=== PATIENT | male | born 1940 | race African-American/Black ===

== ENCOUNTER 2023-06-12 11:11 | Inpatient (IN) | payer OTHER, MEDICARE ==
[~2023-06-12] VITALS: Ht 304.8 cm; Wt 61.7 kg
[2023-06-12] MEDS: SODIUM CHLORIDE 0.9% 1,000 ML IV ONE (11:44)
[2023-06-12] MEDS: PIPERACILLIN/TAZO 3.375G/50ML 50 ML IV ONE (11:45)
[2023-06-12 11:51] LABS: BASOPHILS % 0.3 % (0.0-2.0); EOSINOPHILS % 2.2 % (0.0-5.0); HEMATOCRIT. 36.2 % (42.0-52.0); HEMOGLOBIN. 11.8 g/dL (14.0-18.0); LYMPHOCYTES % 17.5 % (20.0-50.0); MEAN CORPUSCULAR HEMOGLOBIN 31.8 pg (28.0-32.0); MEAN CORPUSCULAR HGB CONC 32.6 g/dL (31.0-37.0); MEAN CORPUSCULAR VOLUME 97.6 fL (80.0-94.0); MEAN PLATELET VOLUME 8.4 fl (7.4-10.4); MONOCYTES % 6.5 % (2.0-8.0); NEUTROPHILS % 73.5 % (40.0-76.0); PLATELET 163 x1000/uL (130-400); RED BLOOD CELL COUNT 3.71 mill/uL (4.7-6.1); RED CELL DISTRIBUTION WIDTH 15.8 % (11.6-14.6); WHITE BLOOD COUNT 9.3 x1000/uL (4.5-11.0)
[2023-06-12] MEDS: VANCOMYCIN 1G PREMIX 200 ML IV ONE (12:04)
[2023-06-12] MEDS: SODIUM CHLORIDE 0.9% 1000ML BAG (SEPSIS BOLUS) IV ONE (12:04)
[2023-06-12 12:10] LABS: ALANINE AMINOTRANSFERASE 11 IU/L (10-49); ALBUMIN 3.5 g/dL (3.2-4.8); ASPARTATE AMINOTRANSFERASE 17 IU/L (<34); BILIRUBIN TOTAL 0.7 mg/dL (0.1-1.0); CALCIUM 9.3 mg/dL (8.7-10.4); CARBON DIOXIDE 25 mEq/L (21-32); CHLORIDE 107 mEq/L (98-107); CREATININE 1.1 mg/dL (0.6-1.3); GLUCOSE 93 mg/dL (70-105); POTASSIUM 3.8 mEq/L (3.5-5.1); PROTEIN TOTAL 6.8 g/dL (6.0-8.3); SODIUM 140 mEq/L (136-145); TROPONIN I HIGH SENSITIVITY 23 ng/L (3.0-53); UREA NITROGEN BLOOD 19 mg/dL (9-23)
[2023-06-12 12:42] LABS: PROTHROMBIN TIME 10.8 sec (9.6-11.0)
[2023-06-12] MEDS ORDERED: ONDANSETRON HCL 4MG/2ML INJ IV PRN (14:00)
[2023-06-12] MEDS ORDERED: MAGNESIUM/ALUMINUM HYDROXIDE/SIMETHICONE 30ML UDC PO PRN (14:00)
[2023-06-12] MEDS ORDERED: IPRATROPIUM/ALBUTEROL 0.5-3(2.5)MG/3ML NEB HHN PRN (14:00)
[2023-06-12] MEDS ORDERED: ACETAMINOPHEN 325MG TABLET PO PRN ×2 (14:00)
[2023-06-12] MEDS ORDERED: GUAIFENESIN 200MG/10ML SUGAR FREE UDC PO PRN (14:00)
[2023-06-12] MEDS ORDERED: DOCUSATE SODIUM 100MG CAPSULE PO PRN (14:00)
[2023-06-12] MEDS ORDERED: CLONIDINE 0.1MG TABLET PO PRN (14:00)
[2023-06-12 15:00] VITALS: BP 124/63; PULSE 76; RESP 20; TEMP 97.7
[2023-06-12] MEDS ORDERED: PIPERACILLIN/TAZOBACTAM 3.375 G in DEXTROSE 5% WATER 50 ML IV SCH (15:00)
[2023-06-12 15:30] VITALS: BP 124/63; PULSE 76; RESP 5; TEMP 97.7
[2023-06-12] MEDS: SODIUM CHLORIDE 0.9% 1,000 ML IV SCH (16:23)
[2023-06-12] MEDS ORDERED: TERA10CA4 PO (17:40)
[2023-06-12] MEDS ORDERED: QUET50TA23 PO (17:40)
[2023-06-12] MEDS ORDERED: FINA5TAB11 PO (17:40)
[2023-06-12] MEDS ORDERED: MONT-39 PO (17:40)
[2023-06-12] MEDS ORDERED: FURO40TA5 PO (17:40)
[2023-06-12] MEDS ORDERED: LISI20TA31 PO (17:40)
[2023-06-12] MEDS ORDERED: AMLO10TA80 PO (17:40)
[2023-06-12] MEDS ORDERED: SPIR25TA6 PO (17:40)
[2023-06-12] MEDS: PIPERACILLIN/TAZO 3.375G/50ML IV SCH (17:54)
[2023-06-12 20:00] VITALS: BP 126/63; PULSE 79; RESP 18; TEMP 97.5
[2023-06-12] MEDS: ENOXAPARIN 40MG/0.4ML SYR SUBCUT SCH (20:45)
[2023-06-12] MEDS: TERAZOSIN HCL 5MG CAPSULE PO SCH (21:00)
[2023-06-13] VITALS: BP 135/81; PULSE 70; RESP 18; TEMP 97.6
[2023-06-13] MEDS: VANCOMYCIN 750MG PREMIX 150 ML IV SCH (00:20)
[2023-06-13 01:22] LABS: CREATINE KINASE 155 IU/L (46-171)
[2023-06-13 04:00] VITALS: BP 158/68; PULSE 67; RESP 18; TEMP 97.7
[2023-06-13 05:25] LABS: BASOPHILS % 0.5 % (0.0-2.0); HEMATOCRIT. 34.4 % (42.0-52.0); HEMOGLOBIN. 11.1 g/dL (14.0-18.0); LYMPHOCYTES % 17.7 % (20.0-50.0); MEAN CORPUSCULAR HEMOGLOBIN 31.2 pg (28.0-32.0); MEAN CORPUSCULAR HGB CONC 32.3 g/dL (31.0-37.0); MEAN CORPUSCULAR VOLUME 96.7 fL (80.0-94.0); MONOCYTES % 6.9 % (2.0-8.0); NEUTROPHILS % 69.9 % (40.0-76.0); PLATELET 170 x1000/uL (130-400); RED BLOOD CELL COUNT 3.56 mill/uL (4.7-6.1); RED CELL DISTRIBUTION WIDTH 15.3 % (11.6-14.6); WHITE BLOOD COUNT 5.9 x1000/uL (4.5-11.0)
[2023-06-13] MEDS ORDERED: VANCOMYCIN 1.25GM PMX (XELLIA) 250 ML IV SCH (06:00)
[2023-06-13 06:05] LABS: ALANINE AMINOTRANSFERASE 10 IU/L (10-49); ALBUMIN 3.3 g/dL (3.2-4.8); ASPARTATE AMINOTRANSFERASE 16 IU/L (<34); BILIRUBIN TOTAL 0.5 mg/dL (0.1-1.0); CALCIUM 8.9 mg/dL (8.7-10.4); CARBON DIOXIDE 27 mEq/L (21-32); CHLORIDE 108 mEq/L (98-107); CHOLESTEROL 146 mg/dL (<200); CREATININE 0.9 mg/dL (0.6-1.3); GLUCOSE 86 mg/dL (70-105); HDL CHOLESTEROL 57 mg/dL (>55); LDL CHOLESTEROL 70 mg/dL (5-100); POTASSIUM 3.9 mEq/L (3.5-5.1); PROTEIN TOTAL 6.5 g/dL (6.0-8.3); SODIUM 143 mEq/L (136-145); TRIGLYCERIDE 62 mg/dL (0-150); UREA NITROGEN BLOOD 18 mg/dL (9-23)
[2023-06-13 08:00] VITALS: BP 147/69; PULSE 64; RESP 18; TEMP 97.3
[2023-06-13 08:14] LABS: T4 FREE 1.17 ng/dL (0.89-1.76)
[2023-06-13] MEDS: FINASTERIDE 5MG TABLET PO SCH (08:32)
[2023-06-13] MEDS: ASPIRIN 81MG EC TABLET PO SCH (08:32)
[2023-06-13] MEDS ORDERED: MEDICATION NOT ON FORMULARY EA (Terazosin Hcl 1 CAP) PO SCH (09:00)
[2023-06-13] MEDS: VANCOMYCIN 500MG PREMIX 100 ML IV NR (09:05)
[2023-06-13] MEDS: FAMOTIDINE 20MG/2ML VIAL IV SCH (09:05)
[2023-06-13] MEDS ORDERED: HALOPERIDOL LACTATE 5MG/ML VIAL IM NR (14:15)
[2023-06-13 16:00] VITALS: BP 114/68; PULSE 66; RESP 18; TEMP 97.7
[2023-06-13 17:08] VITALS: BP 114/68; PULSE 66; TEMP 97.7; O2SAT 97
[2023-06-14] MEDS ORDERED: VANCOMYCIN 1.25GM PMX (XELLIA) 250 ML IV SCH (09:00)
== END 2023-06-13 19:28 | disposition short-term general hospital (02) | DRG 917 ==
LOC: ER 11:11 → 7EST 13:26 → EDBEDREQTM 13:37 → EDBEDREQ 13:37
PROVIDERS: ADMIT Internal Medicine; ATTEND Internal Medicine
DX: T50.991A Poisoning by other drugs, medicaments and biological substances, accidental (unintentional), initial encounter (principal); G92.8 Other toxic encephalopathy; J18.9 Pneumonia, unspecified organism; D50.9 Iron deficiency anemia, unspecified; I11.0 Hypertensive heart disease with heart failure; I50.9 Heart failure, unspecified; N40.0 Benign prostatic hyperplasia without lower urinary tract symptoms; F03.90 Unspecified dementia, unspecified severity, without behavioral disturbance, psychotic disturbance, mood disturbance, and anxiety; Z79.899 Other long term (current) drug therapy; Y92.89 Other specified places as the place of occurrence of the external cause
CPT/HCPCS: 36415; 71045; 80053; 80061; 82550; 83036; 83605; 84145; 84439; 84443; 84481; 84484; 85025; 92610; 93005; 93306; 93970; 99291; J1650; J2543; J3370; J3490; J7030